=== PATIENT | female | born 1980 | race Caucasian/White ===

== ENCOUNTER 2016-07-28 18:36 | Emergency (ER) | payer BC, OTHER ==
[~2016-07-28] VITALS: Ht 162.6 cm; Wt 56.4 kg
[~2016-07-28 18:36] MED LIST: PREN0.01
[2016-07-28 18:55] VITALS: BP 125/80; PULSE 76; RESP 16; TEMP 98.7; O2SAT 100
[2016-07-28] MEDS ORDERED: SODIUM CHLOR 0.9% 1000 ML INJ 1,000 ML IV SCH (19:26)
[2016-07-28] MEDS ORDERED: FAMOTIDINE 20 MG/2 ML VIAL IV PUSH ONE (19:30)
[2016-07-28] MEDS ORDERED: SODIUM CHLORIDE 0.9% FLUSH 5 ML FLUSH IVF PRN (19:30)
[2016-07-28] MEDS ORDERED: PANTOPRAZOLE SODIUM 40 MG VIAL IVP ONE (19:30)
[2016-07-28] MEDS ORDERED: ONDANSETRON HCL 4 MG/2 ML VIAL IVP ONE (19:30)
--- NOTE | 2016-07-28 19:34 | PD ---
HPI Chief Complaint: Abdominal Pain Time Seen by Provider: 19:16 Travel History International Travel<30 days: No Contact w/Intl Traveler<30days: No Traveled to known affect area: No History of Present Illness HPI The patient is a 35-year-old female that complains of midline stomach cramps and pain to the right of the umbilicus along with nausea without vomiting for 5 days. The patient has had a temperature of 100 at home. She denies any diarrhea. She denies any melanotic or bloody stools. She states there is no chance of , she has an IUD. She does not have any primary care physician. She has never had any abdominal surgery. [facility] Past Medical History Medical History: Denies Significant Hx Tetanus Vaccination: > 5 Years Influenza Vaccination: No ?: Not Past Surgical History Surgical History: No Previous Surgery Social History Alcohol Use: Yes Tobacco Use: No Substance Use: No Allergies-Medications (Allergen,Severity, Reaction): Coded Allergies: Keflex (Verified Adverse Reaction, Mild, ITCHY, 07/28/16) Reported Meds & Prescriptions Reported Meds & Active Scripts Active No Active Prescriptions or Reported Medications Review of Systems Except as stated in HPI: all other systems reviewed are Neg Physical Exam Narrative GENERAL: The patient is alert, oriented 3 and slight apparent distress with her midline epigastric pain. Her vital signs are normal. SKIN: Warm and dry. HEAD: Atraumatic. Normocephalic. EYES: Pupils equal and round. No scleral icterus. No injection or drainage. ENT: No nasal bleeding or discharge. Mucous membranes pink and moist. NECK: Trachea midline. No JVD. CARDIOVASCULAR: Regular rate and rhythm. No murmur appreciated. RESPIRATORY: No accessory muscle use. Clear to auscultation. Breath sounds equal bilaterally. GASTROINTESTINAL: Abdomen soft, with tenderness to direct palpation in the midline epigastrium and slightly to the right of the umbilicus, nondistended. Hepatic and splenic margins not palpable. No guarding or rebound is present. Garzon's sign is negative. MUSCULOSKELETAL: No obvious deformities. No clubbing. No cyanosis. No edema. NEUROLOGICAL: Awake and alert. No obvious cranial nerve deficits. Motor grossly within normal limits. Normal speech. PSYCHIATRIC: Appropriate mood and affect; insight and judgment normal. Data Data Last Documented VS Vital Signs Date Time Temp Pulse Resp B/P Pulse Ox O2 Delivery O2 Flow Rate FiO2 3/8/17 19:42 99 Room Air 07/28/16 18:55 98.7 76 16 125/80 Orders Complete Blood Count With Diff (07/28/16 19:26) Comprehensive Metabolic Panel (07/28/16 19:26) Lipase (07/28/16 19:26) Urinalysis - C+S If Indicated (07/28/16 19:26) Iv Access Insert/Monitor (07/28/16 19:26) Ecg Monitoring (07/28/16 19:26) Oximetry (07/28/16 19:26) Ondansetron Inj (Zofran Inj) (07/28/16 19:30) Pantoprazole Inj (Protonix Inj) (07/28/16 19:30) Sodium Chlor 0.9% 1000 Ml Inj (Ns 1000 M (07/28/16 19:26) Sodium Chloride 0.9% Flush (Ns Flush) (07/28/16 19:30) Famotidine Inj (Pepcid Inj) (07/28/16 19:30) Potassium Chloride (Kcl) (07/28/16 20:45) Ct Abd/Pel W Iv Contrast(Rout) (07/28/16 20:51) Ed Urine Pregnancytest Poc (07/28/16 20:55) Iohexol 350 Inj (Omnipaque 350 Inj) (07/28/16 21:26) Labs Laboratory Tests Test 07/28/16 07/28/16 19:35 19:40 Urine Color YELLOW Urine Turbidity CLEAR Urine pH 6.0 Urine Specific [place] 1.011 Urine Protein NEG mg/dL Urine Glucose (UA) NEG mg/dL Urine Ketones 40 mg/dL Urine Occult Blood SMALL Urine Nitrite NEG Urine Bilirubin NEG Urine Leukocyte Esterase NEG Urine RBC 0-3 /hpf Urine Squamous Epithelial 0-5 /hpf Cells Microscopic Urinalysis Comment CULT NOT INDICATED White Blood Count 7.2 TH/MM3 Red Blood Count 4.35 MIL/MM3 Hemoglobin 13.2 GM/DL Hematocrit 38.6 % Mean Corpuscular Volume 88.9 FL Mean Corpuscular Hemoglobin 30.3 PG Mean Corpuscular Hemoglobin 34.1 % Concent Red Cell Distribution Width 12.9 % Platelet Count 214 TH/MM3 Mean Platelet Volume 8.6 FL Neutrophils (%) (Auto) 58.0 % Lymphocytes (%) (Auto) 29.4 % Monocytes (%) (Auto) 10.1 % Eosinophils (%) (Auto) 2.0 % Basophils (%) (Auto) 0.5 % Neutrophils # (Auto) 4.3 TH/MM3 Lymphocytes # (Auto) 2.1 TH/MM3 Monocytes # (Auto) 0.7 TH/MM3 Eosinophils # (Auto) 0.1 TH/MM3 Basophils # (Auto) 0.0 TH/MM3 CBC Comment DIFF FINAL Differential Comment Sodium Level 139 MEQ/L Potassium Level 3.3 MEQ/L Chloride Level 102 MEQ/L Carbon Dioxide Level 27.3 MEQ/L Anion Gap 10 MEQ/L Blood Urea Nitrogen 8 MG/DL Creatinine 0.68 MG/DL Estimat Glomerular Filtration 97 ML/MIN Rate Random Glucose 99 MG/DL Calcium Level 8.6 MG/DL Total Bilirubin 0.6 MG/DL Aspartate Amino Transf 18 U/L (AST/SGOT) Alanine Aminotransferase 21 U/L (ALT/SGPT) Alkaline Phosphatase 67 U/L Total Protein 7.3 GM/DL Albumin 3.8 GM/DL Lipase 88 U/L [facility] Medical Decision Making Medical Screen Exam Complete: Yes Emergency Medical Condition: Yes Medical Record Reviewed: Yes Interpretation(s) The CBC is normal. The complete metabolic profile shows a potassium of 3.3 but is otherwise normal. The lipase is normal. The urinalysis shows a specific gravity 1.011, 40 ketones with small occult blood but is otherwise normal and culture is not indicated. The urine point of care test is negative. The CT abdomen/pelvis with IV contrast shows an intrauterine device and small amount of pelvic free fluid but is otherwise normal. Differential Diagnosis Viral gastritis, gastroenteritis, colitis, cholecystitis, dehydration, urinary tract infection, electrolyte disorder, ulcer pain, other causes of gastritis, pancreatitis Narrative Course It is now 8:50 PM and the patient is no longer nauseated. The patient states she wants a scan. The CT scan is negative. The patient likely has a viral gastritis. The low white count suggest viral etiology. Impression: Viral gastritis Plan: The patient will be given Zofran, prescription for Prilosec to take daily and follow-up with a primary care physician later this week or early next week. If she cannot find a primary care physician she should follow-up with a gym manager if this pain becomes recurrent or persistent pain. Diagnosis Primary Impression: Viral gastritis Additional Instructions: If this pain becomes recurrent or persistent you should follow-up with a gym manager. Try to find a primary care physician in follow-up with a primary care physician. Avoid aspirin, alcohol and nonsteroidal anti- inflammatory medications because they may irritate the stomach. You can take liquid Maalox/Mylanta to see if this helps give you some relief. Med/Other Pt SpecificInfo: Prescription(s) given Scripts Ondansetron (Zofran)4 Mg Tab4 Mg PO Q6HR PRN (NAUSEA OR VOMITING) #21 TAB Ref 0 Prov:Chaitanya Urban MD 07/28/16 Omeprazole (Prilosec)20 Mg Cap20 Mg PO DAILY #30 CAP Ref 0 Prov:Chaitanya Urban MD 07/28/16 Chaitanya Urban MD Jul 28, 2016 19:34
[2016-07-28 19:42] VITALS: O2SAT 99
[2016-07-28 19:53] LABS: AUTOMATED NEUTROPHIL # 4.3 TH/MM3 (1.8-7.7); BASOPHIL % 0.5 % (0.0-2.0); EOSINOPHIL # 0.1 TH/MM3 (0-0.4); HEMATOCRIT 38.6 % (35.0-46.0); HEMO FLAGS DIFF FINAL; LYMPH % 29.4 % (9.0-44.0); LYMPHOCYTE # 2.1 TH/MM3 (1.0-4.8); MEAN CELL VOLUME 88.9 FL (80.0-100.0); MEAN CORPUSCULAR HEMOGLOBIN 30.3 PG (27.0-34.0); MEAN CORPUSCULAR HGB CONC 34.1 % (32.0-36.0); MONO % 10.1 % (0.0-8.0); PLATELET COUNT 214 TH/MM3 (150-450); RED BLOOD COUNT 4.35 MIL/MM3 (4.00-5.30); RED CELL DISTRIBUTION WIDTH 12.9 % (11.6-17.2); WHITE BLOOD COUNT 7.2 TH/MM3 (4.0-11.0)
[2016-07-28 19:58] LABS: BLOOD, URINE SMALL (NEG); GLUCOSE,URINE NEG (NEG); KETONE, URINE 40 mg/dL (NEG); NITRITE,URINE NEG (NEG)
[2016-07-28 20:01] LABS: CHLORIDE 102 MEQ/L (98-107); POTASSIUM 3.3 MEQ/L (3.5-5.1); SODIUM (NA) 139 MEQ/L (136-145)
[2016-07-28 20:03] LABS: URINE COLOR YELLOW (YELLW/STRAW)
[2016-07-28 20:05] LABS: COMMENT (UR) CULT NOT INDICATED; CULTURE IF INDICATED CULT NOT INDICATED; RBC, URINE 0-3 /hpf (0-3); SQUAMOUS EPITHELIAL CELL URINE 0-5 /hpf (0-5)
[2016-07-28 20:05] LABS: ANION GAP 10 MEQ/L (5-15); BICARBONATE 27.3 MEQ/L (21.0-32.0); BLOOD UREA NITROGEN 8 MG/DL (7-18)
[2016-07-28 20:08] LABS: ALT (GPT) 21 U/L (10-53); AST (GOT) 18 U/L (15-37); GLOMERULAR FILTRATION RATE 97 ML/MIN (>89)
[2016-07-28 20:10] LABS: TOTAL BILIRUBIN ADULT 0.6 MG/DL (0.2-1.0)
[2016-07-28 20:11] LABS: ALKALINE PHOSPHATASE 67 U/L (45-117)
[2016-07-28] MEDS ORDERED: POTASSIUM CHLORIDE 20 MEQ CONTROLLED RELEASE TAB PO ONE (20:45)
[2016-07-28 21:00] VITALS: BP 122/84; PULSE 74; RESP 18; O2SAT 99
[2016-07-28] MEDS ORDERED: IOHEXOL 350 MG/ML 10 ML VIAL (for RAD DIAG) IV ONE (21:26)
--- NOTE | 2016-07-28 21:32 | RADHPO ---
EXAM DATE/TIME: 07/28/2016 21:11 [place] COMPARISON: No previous studies available for comparison. INDICATIONS : Mid and right lower abdominal pain and cramping. IV CONTRAST: 100 cc Omnipaque 350 (iohexol) IV ORAL CONTRAST: No oral contrast ingested. RADIATION DOSE: 7.00 CTDIvol (mGy) MEDICAL HISTORY : None SURGICAL HISTORY : IUD placement. ENCOUNTER: Initial ACUITY: 4 - 6 days PAIN SCALE: 5/10 LOCATION: Bilateral lower quadrant TECHNIQUE: Volumetric scanning of the abdomen and pelvis was performed. Using automated exposure control and ad justment of the mA and/or kV according to patient size, radiation dose was kept as low as reasonably achievable to obtain optimal diagnostic quality images. FINDINGS: LOWER LUNGS: The visualized lower lungs are clear. LIVER: Homogeneous density without lesion. There is no dilation of the biliary tree. No calcified gallston es. SPLEEN: Normal size without lesion. PANCREAS: Within normal limits. KIDNEYS: Normal in size and shape. There is no mass, stone or hydronephrosis. ADRENAL GLANDS: Within normal limits. VASCULAR: There is no aortic aneurysm. BOWEL/MESENTERY: The stomach, small bowel, and colon demonstrate no acute abnormality. There is no free intraperitone al air or fluid. ABDOMINAL WALL: Within normal limits. RETROPERITONEUM: There is no lymphadenopathy. BLADDER: No wall thickening or mass. REPRODUCTIVE: Intrauterine device. Small amount of pelvic free fluid. INGUINAL: There is no lymphadenopathy or hernia. MUSCULOSKELETAL: Within normal limits for patient age. CONCLUSION: 1. Intrauterine device. 2. Small amount of pelvic free fluid. Derik Prado MD on July 28, 2016 at 21:27 Board Certified Radiologist. This report was verified electronically.
[2016-07-28] MEDS ORDERED: PRIL20CA9 PO (21:43)
[2016-07-28] MEDS ORDERED: ZOFR4TAB PO (21:43)
== END 2016-07-28 21:54 | disposition home or self-care (01) ==
LOC: PHED 18:36
DX: A08.4 Viral intestinal infection, unspecified (principal)
CPT/HCPCS: 74177; 80053; 81001; 83690; 84703; 85025; 96361; 96374; 96375; 99284; C9113; J2405; J7030; Q9967